=== PATIENT | male | born 1985 | race Caucasian/White ===

== ENCOUNTER 2016-07-17 16:51 | Emergency (ER) | payer MEDICAID ==
[2016-07-17 18:13] VITALS: BP 138/89
--- NOTE | 2016-07-17 19:48 | EDM.PDOC ---
[id number] 4d ABD PAIN VOMITING BLOOD Time Seen by Provider: 07/17/16 18:15 Source: Reports: Patient, Family History Limitations: Reports: No limitations - History of Present Illness INITIAL COMMENTS - FREE TEXT/NARRATIVE: 31-year-old male with chronic abdominal pain which is worsening over the past 2- 3 days. He has had a workup in the past and was expected to schedule an EGD and colonoscopy but he has not done that yet. Some increased pain with eating, no fevers or chills but he does get nauseated enough to have emesis at times and he thinks it's occasionally coffee ground emesis. He denies dark stools. No fevers or chills. Location: other (Pain is mostly across the lower abdomen and left upper quadrant ) Quality: Reports: ache, cramping Severity: moderate Worsens with: Reports: other (Seems to be worse after eating) Associated Symptoms: Reports: nausea/vomiting. Denies: diarrhea, fever/chills, loss of appetite - Related Data Allergies/ADRs: Allergies Allergy/AdvReac Type Severity Reaction Status Date / Time No Known Allergies Allergy Verified 07/17/16 18:13 Past Medical History Gastrointestinal History: Reports: Other (see below) Other Gastrointestinal History: bloody stools Musculoskeletal History: Reports: Fracture Psychiatric History: Reports: ADD, Bipolar - Past Surgical History Musculoskeletal Surgical History: Reports: ORIF Social & Family History - Tobacco Use Smoking Status *Q: Current Every Day Smoker Years of Tobacco use: 9 Packs/Tins Daily: 1 Used Tobacco, but Quit: No Second Hand Smoke Exposure: Yes - Caffeine Use Caffeine Use: Reports: Energy drinks, Soda - Alcohol Use Days Per Week of Alcohol Use: 4 Number of Drinks Per Day: 1 Total Drinks Per Week: 4 - Recreational Drug Use Recreational Drug Use: No Recreational Drug Type: Reports: Marijuana/Hashish Recreational Drug Use Frequency: Socially ED ROS GENERAL - Review of Systems Review Of Systems: See Below Constitutional: Denies: fever, chills, malaise HEENT: Reports: No symptoms Respiratory: Reports: No Symptoms Cardiovascular: Reports: No symptoms GI/Abdominal: Reports: Abdominal pain, Constipation, Hematemesis : Reports: no symptoms Skin: Reports: no symptoms Neurological: Reports: No Symptoms Psychiatric: Reports: No symptoms ED EXAM, GI/ABD - Physical Exam Exam: See Below Exam Limited By: No limitations General Appearance: alert, no apparent distress Eyes: bilateral: normal appearance (No jaundice) Respiratory/Chest: no respiratory distress, lungs clear Cardiovascular: regular rate, rhythm GI/Abdominal: soft, tenderness (He does react with some tenderness to the left upper quadrant and periumbilical area but no guarding or rebound) Neurological: alert, oriented Psychiatric: normal affect, normal mood Skin Exam: Warm, Dry Course - Vital Signs Last Recorded V/S: Last Vital Signs Temp 98.0 F 07/17/16 18:08 Pulse 67 07/17/16 18:08 Resp 18 07/17/16 18:08 BP 138/89 07/17/16 18:08 Pulse Ox 98 07/17/16 18:08 - Orders/Labs/Meds Labs: Laboratory Tests 07/17/16 07/17/16 07/17/16 Range/Units 18:44 18:44 18:44 WBC 11.2 H (4.5-11.0) K/uL RBC 5.65 (4.30-5.90) M/uL Hgb 17.1 H (12.0-15.0) g/dL Hct 46.9 (40.0-54.0) % MCV 83 (80-98) fL MCH 30 (27-31) pg MCHC 37 H (32-36) % Plt Count 286 (150-400) K/uL Neut % (Auto) 66 (36-66) % Lymph % (Auto) 26 (24-44) % [place] % (Auto) 5 (2-6) % Eos % (Auto) 2 (2-4) % Baso % (Auto) 1 (0-1) % ESR 2 (0-20) mm/hr Sodium 143 (140-148) mmol/L Potassium 4.1 (3.6-5.2) mmol/L Chloride 106 (100-108) mmol/L Carbon Dioxide 25 (21-32) mmol/L Anion Gap 12.4 (5.0-14.0) mmol/L BUN 10 (7-18) mg/dL Creatinine 0.9 (0.8-1.3) mg/dL Est Cr Clr Drug Dosing 148.69 mL/min Estimated GFR (MDRD) > 60 (>60) Glucose 98 (74-106) mg/dL Calcium 9.1 (8.5-10.1) mg/dL Total Bilirubin 0.5 (0.2-1.0) mg/dL AST 17 (15-37) U/L ALT 39 (12-78) U/L Alkaline Phosphatase 91 (46-116) U/L Total Protein 8.0 (6.4-8.2) g/dL Albumin 4.4 (3.4-5.0) g/dL Globulin 3.6 H (2.3-3.5) g/dL Albumin/Globulin Ratio 1.2 (1.2-2.2) Amylase 25 (25-115) U/L Lipase 80 (73-393) U/L - Re-Assessments/Exams Free Text/Narrative Re-Assessment/Exam: 07/17/16 20:42 CBC and CMP were obtained and were reassuring, normal. Sedimentation rate was 2. While awaiting the labs the patient ate a full meal from [employer] and complained of a small amount of increased epigastric and left upper quadrant discomfort. He'll be placed on 40 mg of Prilosec daily and given 30 day supply with prescription, and encouraged to set up his EGD and colonoscopy as soon as possible. Departure - Departure Time of Disposition: 19:54 Disposition: Home, Self-Care 01 Condition: good Clinical Impression: Abdominal pain Qualifiers: Abdominal location: lower abdomen, unspecified Qualified Code(s): R10.30 - Lower abdominal pain, unspecified Instructions: Abdominal Pain, Adult, [id number] Referrals: PCP,None [Primary Care Provider] - Forms: ED Department Discharge Care Plan Goals: Take omeprazole once daily as prescribed, and set up you're to followup studies as soon as possible. Return if worsening or concerns
== END 2016-07-17 19:54 | disposition home or self-care (01) ==
LOC: JP.ED 16:51
DX: R10.30 Lower abdominal pain, unspecified (principal); F17.210 Nicotine dependence, cigarettes, uncomplicated; Z98.890 Other specified postprocedural states
CPT/HCPCS: 36415; 80053; 82150; 83690; 85025; 85651; 99283; 99284

== ENCOUNTER 2016-07-22 08:13 | Day surgery (SDC) | payer MEDICAID ==
[2016-07-22] MEDS ORDERED: Dextrose 5%-Lactated Ringers 1,000 ML IV SCH (08:45)
[2016-07-22] MEDS ORDERED: Glycopyrrolate 0.2 MG/ML 2 ML SYRINGE IVPUSH ONE ×2 (09:15→11:45)
[2016-07-22] MEDS ORDERED: Propofol 200 MG/20 ML SDV ONE (10:36)
[2016-07-22] MEDS ORDERED: Midazolam 1 MG/ML 2 ML SDV ONE (10:36)
[2016-07-22] MEDS ORDERED: fentaNYL 100 MCG/2 ML SDV ONE (10:36)
[2016-07-22] MEDS ORDERED: Pantoprazole 40 MG Vial IVPUSH ONE (12:30)
[2016-07-22 13:39] VITALS: BP 120/73
--- NOTE | 2016-07-23 12:42 | OR ---
DATE OF PROCEDURE: 07/22/2016 PREOPERATIVE DIAGNOSIS: Recent history of hematemesis. POSTOPERATIVE DIAGNOSIS: Recent history of hematemesis with erosive antral gastritis. OPERATIVE PROCEDURES: Esophagogastroduodenoscopy with; 1. Biopsies of antrum for CLOtest. 2. Random biopsies of duodenum to rule out problems such as celiac disease. ANESTHESIA: IV sedation. INDICATIONS FOR PROCEDURE: A 31-year-old male presenting with a 2-month history of some intermittent hematemesis. He has not been on any antisecretory medication due to insurance issues. Plan is to proceed with an upper GI endoscopy with biopsies as indicated. Potential risks including bleeding and perforation were discussed, and the patient wishes to proceed. DETAILS OF PROCEDURE: The patient was taken to the operating room and placed in the left lateral decubitus position. IV sedation was administered, after which the upper GI endoscope was passed orally through the length of the esophagus and into the stomach with retroflexion view of the fundus, and thereafter through the pyloric channel and into the proximal duodenum. The findings included normal hypopharynx, larynx, upper esophageal sphincter, and esophageal body. At the EG junction, no hiatal hernia was noted and there was no significant inflammation. The proximal stomach was unremarkable. In the antrum, there was some erosive gastritis. These were presently covered with some fibrinous-type exudate and would likely account for the patient's bleeding history. Pyloric channel and duodenum junction of 3rd and 4th portions, were unremarkable. At this point, biopsies were obtained from the antrum and sent for CLOtest for H. pylori. The patient has a significant amount of ill-defined abdominal complaints and as we were in the process of upper endoscopy, the decision was made to proceed with some random duodenal biopsies to rule out problems such as celiac disease. These were obtained and sent for histologic evaluation. Minimal bleeding from the biopsy sites was seen, and the procedure then concluded. The patient will be given Protonix 40 mg IV in the recovery room and then started on Protonix 40 mg daily. The patient will be following up with DI Fall, at [facility], in about 2 weeks. Rajesh Frias MD /[id number]
== END 2016-07-22 13:49 | disposition home or self-care (01) ==
LOC: JP.SDS 08:13
PROVIDERS: ATTEND Surgery
DX: K29.50 Unspecified chronic gastritis without bleeding (principal); F17.200 Nicotine dependence, unspecified, uncomplicated
CPT/HCPCS: 43239; 87081; C9113; J2250; J2704; J3010; J7042; 88305

== ENCOUNTER 2016-10-30 13:51 | Emergency (ER) | payer MEDICAID ==
[2016-10-30 14:11] VITALS: BP 138/81
--- NOTE | 2016-10-30 14:34 | EDM.PDOC ---
[id number] Complaint: RIGHT FOOT INJURY LOG FEEL ON IT Time Seen by Provider: 10/30/16 14:15 Source of Information: Reports: Patient History Limitations: Reports: No Limitations - History of Present Illness INITIAL COMMENTS - FREE TEXT/NARRATIVE: 31-year-old male sustaining trauma to his right foot. A log fell over onto his the top of his right foot. This happened approximately 3 hours ago, he has significant swelling on the top of his foot, bruising, and pain with weightbearing. No other injury. Onset: Today Location: Reports: Lower Extremity, Right Severity: Mild Associated Symptoms: Reports: No Other Symptoms right foot Pain Score (Numeric/FACES): 5 - Related Data Allergies Allergy/AdvReac Type Severity Reaction Status Date / Time No Known Allergies Allergy Verified 10/30/16 14:14 Home Meds: Home Meds Dextroamphetamine/Amphetamine [Adderall 20 mg Tablet] 10 mg PO BID 07/21/16 [ History] lamoTRIgine [Lamictal] 25 mg PO BID 07/21/16 [History] Hydrocodone/Acetaminophen [Vicodin 5-300 mg Tablet] 1 tab PO TID 10/30/16 [ History] Omeprazole Magnesium [Prilosec Otc] 20 mg PO DAILY 10/30/16 [History] Sertraline [Zoloft] 100 mg PO DAILY 10/30/16 [History] Past Medical History Gastrointestinal History: Reports: GERD Other Gastrointestinal History: bloody stools Musculoskeletal History: Reports: Fracture Psychiatric History: Reports: ADD, Bipolar - Past Surgical History Musculoskeletal Surgical History: Reports: ORIF Social & Family History - Tobacco Use Smoking Status *Q: Current Every Day Smoker Years of Tobacco use: 10 Packs/Tins Daily: 1 Used Tobacco, but Quit: No Second Hand Smoke Exposure: No - Caffeine Use Caffeine Use: Reports: Coffee, Soda - Alcohol Use Days Per Week of Alcohol Use: 4 Number of Drinks Per Day: 1 Total Drinks Per Week: 4 - Recreational Drug Use Recreational Drug Use: No Recreational Drug Type: Reports: Marijuana/Hashish Recreational Drug Use Frequency: Socially Review of Systems - Review of Systems Review Of Systems: See Below Constitutional: Denies: Fever Respiratory: Denies: Shortness of Breath GI/Abdominal: Denies: Nausea, Vomiting Skin: Reports: Bruising Psychiatric: Reports: Anxiety ED EXAM, GENERAL - Physical Exam Exam: See Below Exam Limited By: No Limitations General Appearance: Alert, No Apparent Distress Respiratory/Chest: No Respiratory Distress, Lungs Clear Cardiovascular: Regular Rate, Rhythm Extremities: Other (Exam is otherwise limited to his right foot. The patient has a fairly tense hematoma formed on the top of his foot, no laceration or bleeding. There is bruising and discoloration.) Course - Vital Signs Last Recorded V/S: Last Vital Signs Temp 98.5 F 10/30/16 14:09 Pulse 95 10/30/16 14:09 Resp 16 10/30/16 14:09 BP 138/81 10/30/16 14:09 Pulse Ox 97 10/30/16 14:09 - Orders/Labs/Meds Orders: Active Orders 24 hr Category Date Time Status Foot Comp Min 3V Rt [CR] Stat Exams 10/30/16 14:24 Taken - Re-Assessments/Exams Free Text/Narrative Re-Assessment/Exam: 10/30/16 14:34 An x-ray of the right foot was obtained. 10/30/16 14:43 X-ray is negative. A three-inch [place] wrap was applied to the foot and the patient can increase activity as tolerated. Ice may help short-term. Departure - Departure Time of Disposition: 15:03 Disposition: Home, Self-Care 01 Condition: Good Clinical Impression: Foot contusion Qualifiers: Encounter type: initial encounter Laterality: right Qualified Code(s): S90.31XA - Contusion of right foot, initial encounter - Discharge Information Instructions: Foot Contusion, [id number] Referrals: PCP,None [Primary Care Provider] - Forms: ED Department Discharge Care Plan Goals: Wrap for support, ice can help, and increase activity as tolerated. Recheck in 3 -4 days if not improving satisfactorily. - My Orders Last 24 Hours: My Active Orders 10/30/16 14:24 Foot Comp Min 3V Rt [CR] Stat - Assessment/Plan Last 24 Hours: My Active Orders 10/30/16 14:24 Foot Comp Min 3V Rt [CR] Stat
--- NOTE | 2016-11-01 12:09 | CR ---
Soft tissue swelling of the forefoot. No fracture.
== END 2016-10-30 15:04 | disposition home or self-care (01) ==
LOC: JP.ED 13:51
DX: S90.31XA Contusion of right foot, initial encounter (principal); K21.9 Gastro-esophageal reflux disease without esophagitis; F31.9 Bipolar disorder, unspecified; F17.210 Nicotine dependence, cigarettes, uncomplicated; Z79.899 Other long term (current) drug therapy; W22.8XXA Striking against or struck by other objects, initial encounter
CPT/HCPCS: 73630-26-RT; 73630-RT; 99284

== ENCOUNTER 2016-11-09 19:21 | Emergency (ER) | payer MEDICAID | END 2016-11-09 21:45 | disposition left against medical advice (07) | LOC: JP.ED 19:21 | DX: Z53.21 Procedure and treatment not carried out due to patient leaving prior to being seen by health care provider (principal) ==

== ENCOUNTER 2016-11-14 14:22 | Emergency (ER) | payer MEDICAID ==
[2016-11-14 14:34] VITALS: BP 164/81
[2016-11-14] MEDS ORDERED: Acetaminophen/HYDROcodone 325-5 MG Tab PO ONE (15:18)
--- NOTE | 2016-11-14 15:24 | EDM.PDOC ---
ED HPI GENERAL MEDICAL PROBLEM - General Chief Complaint: ENT Problem Stated Complaint: TOOTH PAIN Time Seen by Provider: 11/14/16 14:50 Source of Information: Reports: Patient, Family History Limitations: Reports: No Limitations - History of Present Illness INITIAL COMMENTS - FREE TEXT/NARRATIVE: Orville presents today with complaints of continued and worsening dental pain. Location: Reports: Other (jaw with radiation to right ear. ) Quality: Reports: Ache, Stabbing, Throbbing Severity: Moderate Improves with: Reports: Other (Naproxen and hydrocodone) - Related Data Allergies Allergy/AdvReac Type Severity Reaction Status Date / Time No Known Allergies Allergy Verified 10/30/16 14:14 Home Meds: Home Meds Dextroamphetamine/Amphetamine [Adderall 20 mg Tablet] 30 mg PO BID 07/21/16 [ History] lamoTRIgine [Lamictal] 25 mg PO BID 07/21/16 [History] Omeprazole Magnesium [Prilosec Otc] 20 mg PO DAILY 10/30/16 [History] Sertraline [Zoloft] 100 mg PO DAILY 10/30/16 [History] Past Medical History Gastrointestinal History: Reports: GERD Other Gastrointestinal History: bloody stools Musculoskeletal History: Reports: Fracture Psychiatric History: Reports: ADD, Bipolar - Past Surgical History Musculoskeletal Surgical History: Reports: ORIF Social & Family History - Tobacco Use Smoking Status *Q: Current Every Day Smoker Years of Tobacco use: 10 Packs/Tins Daily: 2 Used Tobacco, but Quit: No Second Hand Smoke Exposure: No - Caffeine Use Caffeine Use: Reports: Coffee, Soda - Alcohol Use Days Per Week of Alcohol Use: 4 Number of Drinks Per Day: 1 Total Drinks Per Week: 4 - Recreational Drug Use Recreational Drug Use: No Recreational Drug Type: Reports: Marijuana/Hashish Recreational Drug Use Frequency: Socially ED ROS ENT - Review of Systems Review Of Systems: See Below Constitutional: Denies: Fever, Chills, Malaise, Weakness HEENT: Reports: Dental Pain, Ear Pain, Other (Pain to right upper and left bottom teeth with radiation to right ear. ). Denies: Ear Discharge, Eye Discharge, Eye Pain, Hearing Loss, Nose Pain, Rhinitis, Sinus Problem, Throat Pain, Throat Swelling Respiratory: Denies: Shortness of Breath, Wheezing, Cough, Sputum Cardiovascular: Denies: Chest Pain, Blood Pressure Problem, Dyspnea on Exertion , Edema, Lightheadedness, Palpitations, PND, Syncope Endocrine: Reports: No Symptoms Musculoskeletal: Denies: Neck Pain, Muscle Pain, Muscle Stiffness Skin: Denies: No Symptoms, Bruising, Rash, Erythema, Wound Neurological: Reports: Headache. Denies: Confusion, Dizziness, Numbness, Tingling, Weakness Psychiatric: Reports: No Symptoms Hematologic/Lymphatic: Reports: No Symptoms Immunologic: Reports: No Symptoms ED EXAM, ENT - Physical Exam Exam: See Below Text/Narrative:: Orville is an alert, oriented and pleasant 31 year old male who has an oral surgeon consult pending This TuesdayNovember 16 for impacted wisdom teeth for extraction. [employer]INEER was reviewed, opiate fills appropriate. Exam Limited By: No Limitations General Appearance: Alert, WD/WN, Mild Distress Eye Exam: Bilateral Eye: EOMI, PERRL Ears: Normal External Exam, Normal Canal, Hearing Grossly Normal, Normal TMs. No: Auricular Tenderness, Mastoid Swelling, Mastoid Tenderness Nose: Normal Inspection, Normal Mucousa, No Blood Mouth/Throat: Normal Inspection, Normal Gums, Normal Lips, Other (Pain to right upper wisdom, left lower wisdom teeth areas. ) Neck: Normal Inspection, Supple, Non-Tender, Full Range of Motion. No: Lymphadenopathy (R), Lymphadenopathy (L) Respiratory/Chest: No Respiratory Distress, Lungs Clear, Normal Breath Sounds, No Accessory Muscle Use, Chest Non-Tender Cardiovascular: Normal Peripheral Pulses, Regular Rate, Rhythm, No Edema, No Murmur, No Rub Back: Normal Inspection, Full Range of Motion. No: CVA Tenderness (R), CVA Tenderness (L) Extremities: Normal Inspection, Normal Range of Motion, Non-Tender, No Pedal Edema, Normal Capillary Refill, Increased Warmth Neurological: Alert, Oriented, CN II-XII Intact, Normal Cognition, Normal Gait, No Motor/Sensory Deficits Psychiatric: Normal Affect, Normal Mood Skin: Warm, Dry, Intact, Normal Color, No Rash Lymphatic: No Adenopathy Course - Vital Signs Last Recorded V/S: Last Vital Signs Temp 36.4 C 11/14/16 14:41 Pulse 67 11/14/16 14:41 Resp 16 11/14/16 14:41 BP 164/81 H 11/14/16 14:41 Pulse Ox 97 11/14/16 14:41 - Orders/Labs/Meds Meds: Medications Discontinued Medications Generic Name Dose Route Start Last Admin Trade Name Michael PRN Reason Stop Dose Admin Hydrocodone Bitart/Acetaminophen 1 tab 11/14/16 15:18 11/14/16 15:27 Burt 325-5 Mg PO 11/14/16 15:19 1 tab ONETIME ONE Administration - Re-Assessments/Exams Free Text/Narrative Re-Assessment/Exam: 11/14/16 15:27 Orville will be provided hydrocodone 5/325mg one tablet in ER. He will be given instymed for additional hydrocodone until date of surgical consult. [place] [employer]ER reviewed. Departure - Departure Time of Disposition: 15:30 Disposition: Home, Self-Care 01 Condition: Good Clinical Impression: Dental impaction - Discharge Information Referrals: PCP,None [Primary Care Provider] - Forms: ED Department Discharge Additional Instructions: You continue to have pain due to dental impaction. Surgical consult pending. For pain it is best to take naproxen 500mg by mouth twice per day with food. Use hydrocodone 5/325 mg, one tablet by mouth every 6 hours as directed for uncontrolled pain. You may use additional tylenol (acetaminophen) as needed for pain. Keep surgical consult. - Assessment/Plan Assessment:: Dental impaction Pending oral surgeon consult for extraction Plan: Patient will continue to have pain due to dental impaction. Surgical consult pending. For pain he can take naproxen 500mg by mouth twice per day with food. Use hydrocodone 5/325 mg, one tablet by mouth every 6 hours as directed for uncontrolled pain #12 tabs provided. He may use additional tylenol (acetaminophen) as needed for pain. Keep surgical consult.
== END 2016-11-14 16:29 | disposition home or self-care (01) ==
LOC: JP.ED 14:22
DX: K01.1 Impacted teeth (principal); F17.210 Nicotine dependence, cigarettes, uncomplicated; K21.9 Gastro-esophageal reflux disease without esophagitis; F98.8 Other specified behavioral and emotional disorders with onset usually occurring in childhood and adolescence; Z79.899 Other long term (current) drug therapy
CPT/HCPCS: 99283; A9270

== ENCOUNTER 2016-12-16 18:49 | Emergency (ER) | payer MEDICAID ==
[2016-12-16 19:00] VITALS: BP 140/71
[2016-12-16] MEDS ORDERED: Acetaminophen/oxyCODONE 325-5 MG Tab PO ONE (20:50)
[2016-12-16] MEDS ORDERED: Ibuprofen 600 MG Tab PO ONE (20:51)
--- NOTE | 2016-12-16 21:21 | EDM.PDOC ---
ED HPI GENERAL MEDICAL PROBLEM - General Chief Complaint: Back Pain or Injury Stated Complaint: SLIPPED IN SHOWER HURT BACK Time Seen by Provider: 12/16/16 19:45 Source of Information: Reports: Patient, Family History Limitations: Reports: No Limitations - History of Present Illness INITIAL COMMENTS - FREE TEXT/NARRATIVE: Slipped in shower, ? if twisting/direct strike but c/o immediate back pain. Unable to get up at time, but denies specific weakness. No LOC, no c/o neck pain. No c/o radicular pain. Has history of 'ruptured disks' but not sure what level. No history of back surgery. No incontinence or saddle parethesia/anesthesia. Duration: Minutes: Location: Reports: Back Severity: Severe Improves with: Reports: None Worsens with: Reports: None Associated Symptoms: Reports: No Other Symptoms Treatments RELATIONSHIP MANAGER: Denies: Acetaminophen, Aspirin Middle Back Pain Score (Numeric/FACES): 7 - Related Data Allergies Allergy/AdvReac Type Severity Reaction Status Date / Time No Known Allergies Allergy Verified 10/30/16 14:14 Home Meds: Home Meds Dextroamphetamine/Amphetamine [Adderall 20 mg Tablet] 30 mg PO BID 07/21/16 [ History] lamoTRIgine [Lamictal] 25 mg PO BID 07/21/16 [History] Omeprazole Magnesium [Prilosec Otc] 20 mg PO DAILY 10/30/16 [History] Sertraline [Zoloft] 100 mg PO DAILY 10/30/16 [History] Past Medical History Gastrointestinal History: Reports: GERD Other Gastrointestinal History: bloody stools Musculoskeletal History: Reports: Fracture Psychiatric History: Reports: ADD, Bipolar - Past Surgical History Musculoskeletal Surgical History: Reports: ORIF Social & Family History - Tobacco Use Smoking Status *Q: Current Every Day Smoker Years of Tobacco use: 10 Packs/Tins Daily: 2 Used Tobacco, but Quit: No Tobacco Use Comment: current smoker Second Hand Smoke Exposure: No - Caffeine Use Caffeine Use: Reports: None - Alcohol Use Days Per Week of Alcohol Use: 4 Number of Drinks Per Day: 1 Total Drinks Per Week: 4 - Recreational Drug Use Recreational Drug Use: No Recreational Drug Type: Reports: Marijuana/Hashish Recreational Drug Use Frequency: Socially ED ROS GENERAL - Review of Systems Review Of Systems: See Below Constitutional: Reports: No Symptoms HEENT: Reports: No Symptoms. Denies: Dental Pain Respiratory: Reports: No Symptoms Cardiovascular: Reports: No Symptoms Endocrine: Reports: No Symptoms GI/Abdominal: Reports: No Symptoms Musculoskeletal: Reports: No Symptoms Skin: Reports: No Symptoms Neurological: Reports: Difficulty Walking. Denies: Dizziness, Headache, Numbness, Paresthesia, Pre-Existing Deficit, Seizure, Syncope, Tingling, Tremors , Trouble Speaking, Weakness Psychiatric: Reports: No Symptoms Hematologic/Lymphatic: Reports: No Symptoms ED EXAM,LOWER BACK PAIN/INJURY - Physical Exam Exam: See Below Exam Limited By: No Limitations General Appearance: Alert, Anxious, Moderate Distress Ears: Normal External Exam, Hearing Grossly Normal Nose: Normal Inspection Throat/Mouth: Normal Inspection, Normal Lips, Normal Teeth, No Airway Compromise Head: Atraumatic, Normocephalic Neck: Normal Inspection, Supple, Non-Tender, Full Range of Motion. No: Tender Midline Respiratory/Chest: No Respiratory Distress, Lungs Clear, Chest Non-Tender Cardiovascular: Normal Peripheral Pulses, Regular Rate, Rhythm, No Edema, No Gallop GI/Abdominal: Normal Bowel Sounds, Soft, Non-Tender, Pelvis Stable (Male) Exam: Normal Inspection Back Exam: Normal Inspection, Decreased Range of Motion, Muscle Spasm (marked R T9-11 spasm, relieved w/ direct pressure), Paraspinal Tenderness, Vertebral Tenderness (TTP over L5 and T12). No: Full Range of Motion Extremities: Normal Inspection, Normal Range of Motion, Non-Tender Neurological: Alert, Normal Mood/Affect, Normal Dorsiflexion, CN II-XII Intact, Normal Plantar Flexion, No Motor/Sensory Deficits, Oriented x 3. No: Abnormal Motor Psychiatric: Normal Affect, Normal Mood, Anxious Skin Exam: Warm, Dry, Intact, Normal Color, No Rash Lymphatic: No Adenopathy Comments: Repeat exam after pain meds showed improved ROM, able to ambulate w/ minimal difficult. Continued spasm of R paraspinous mm. Course - Vital Signs Last Recorded V/S: Last Vital Signs Temp 36.1 C 12/16/16 18:56 Pulse 56 L 12/16/16 18:56 Resp 16 12/16/16 18:56 BP 140/71 12/16/16 18:56 Pulse Ox 97 12/16/16 18:56 - Orders/Labs/Meds Orders: Active Orders 24 hr Category Date Time Status Lumbar Spine 2 or 3V [CR] Stat Exams 12/16/16 20:53 Ordered Meds: Medications Discontinued Medications Generic Name Dose Route Start Last Admin Trade Name Michael PRN Reason Stop Dose Admin Ibuprofen 600 mg 12/16/16 20:51 12/16/16 20:59 Motrin PO 12/16/16 20:52 600 mg ONETIME ONE Administration Oxycodone/Acetaminophen 2 tab 12/16/16 20:50 12/16/16 20:58 Percocet 325-5 Mg PO 12/16/16 20:51 2 tab ONETIME ONE Administration Departure - Departure Time of Disposition: 21:45 Disposition: Home, Self-Care 01 Condition: Good Clinical Impression: Acute back pain less than 4 weeks duration Lumbar back sprain Qualifiers: Encounter type: initial encounter Qualified Code(s): S33.5XXA - Sprain of ligaments of lumbar spine, initial encounter - Discharge Information Instructions: Muscle Strain, [id number], Back Injury Prevention, [id number] , Pain Medicine Instructions, [id number], Back Pain, Adult, [id number] Referrals: PCP,None [Primary Care Provider] - (Physical therapy) Forms: ED Department Discharge Additional Instructions: No driving or operating machinery/power tools when taking pain medications or in sever pain. Follow up with primary care provider. Call for appointment. Keep active, avoid bed rest, avoid stooping, avoid bending over to lift. Follow up with physical therapy. Oxycodone 5-10mg q4h prn #30. Acetaminophen 1000 mg QID Ibuprofen 600mg (OTC 3 tablets) TID with food. Methocarbamol 2 tablets four times a day with food (#40) Return if weakness, loss of sensation, or pain that cannot be controlled. Pressure/massage as needed. 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 Impression acute myofascial back strain w/o e/o fracture or spondylolysis. Neurologically intact. Anticpate self resolution but likely over significant ( e.g 6+ weeks) time. Given his significant spasm, trigger point injection therapy may be of significant relief. I offered this to him, but he declined at this time. Plan: Oral analgesia, activity, trial of "muscle relaxers" with referral to PT.
--- NOTE | 2016-12-17 09:11 | CR ---
Vertebral body heights are maintained. No fracture.
== END 2016-12-16 22:10 | disposition home or self-care (01) ==
LOC: JP.ED 18:49
DX: S33.5XXA Sprain of ligaments of lumbar spine, initial encounter (principal); F17.210 Nicotine dependence, cigarettes, uncomplicated; K21.9 Gastro-esophageal reflux disease without esophagitis; F31.9 Bipolar disorder, unspecified; W18.2XXA Fall in (into) shower or empty bathtub, initial encounter; Z79.899 Other long term (current) drug therapy
CPT/HCPCS: 72100; 99284; A9270

== ENCOUNTER 2017-02-07 23:59 | Emergency (ER) | payer MEDICAID ==
--- NOTE | 2017-02-08 00:32 | EDM.PDOC ---
ED HPI GENERAL MEDICAL PROBLEM - General Chief Complaint: ENT Problem Stated Complaint: TOOTHACHE Time Seen by Provider: 02/08/17 00:20 Source of Information: Reports: Patient, Old Records, RN Notes Reviewed History Limitations: Reports: No Limitations - History of Present Illness INITIAL COMMENTS - FREE TEXT/NARRATIVE: Chief complaint Tooth pain History of present illness 31-year-old male who has limited income, has had a total pain left upper tooth for some time, worse at night and worse with cold fluids. He also has wisdom teeth that need to be extracted No fever or chills No nausea or vomiting Oral/Mouth Pain Score (Numeric/FACES): 7 - Related Data Allergies Allergy/AdvReac Type Severity Reaction Status Date / Time No Known Allergies Allergy Verified 10/30/16 14:14 Home Meds: Home Meds Dextroamphetamine/Amphetamine [Adderall 20 mg Tablet] 30 mg PO BID 07/21/16 [ History] lamoTRIgine [Lamictal] 25 mg PO BID 07/21/16 [History] Omeprazole Magnesium [Prilosec Otc] 20 mg PO DAILY 10/30/16 [History] Sertraline [Zoloft] 100 mg PO DAILY 10/30/16 [History] Hydrocodone/Acetaminophen [Hydrocodon-Acetaminophen 5-325] 1 - 2 each PO Q4H PRN #12 tablet 02/08/17 [Rx] Past Medical History - Past Health History Medical/Surgical History: Denies Medical/Surgical History Gastrointestinal History: Reports: GERD Other Gastrointestinal History: bloody stools Musculoskeletal History: Reports: Fracture Psychiatric History: Reports: ADD, Bipolar - Past Surgical History Musculoskeletal Surgical History: Reports: ORIF Social & Family History - Tobacco Use Smoking Status *Q: Current Every Day Smoker Years of Tobacco use: 9 Packs/Tins Daily: 1 Used Tobacco, but Quit: No Second Hand Smoke Exposure: No - Caffeine Use Caffeine Use: Reports: Soda - Alcohol Use Days Per Week of Alcohol Use: 4 Number of Drinks Per Day: 1 Total Drinks Per Week: 4 - Recreational Drug Use Recreational Drug Use: No Recreational Drug Type: Reports: Marijuana/Hashish Recreational Drug Use Frequency: Socially ED ROS ENT - Review of Systems Review Of Systems: ROS reveals no pertinent complaints other than HPI. Constitutional: Reports: No Symptoms HEENT: Reports: Dental Pain Respiratory: Reports: No Symptoms ED EXAM, ENT - Physical Exam Exam: See Below Exam Limited By: No Limitations General Appearance: Alert, Mild Distress, Other (Appears well) Eye Exam: Bilateral Eye: EOMI Ears: Normal External Exam Nose: Normal Inspection Mouth/Throat: Normal Gums, Normal Lips, Normal Oropharynx, Dental Pain, Dental Tenderness. No: Dental Abcess, Dental Trauma, Gum Swelling, Hoarse Voice, Perioral Cyanosis Head: Atraumatic Neck: Normal Inspection Respiratory/Chest: No Respiratory Distress, No Accessory Muscle Use Neurological: Alert, Oriented Psychiatric: Normal Mood Course - Vital Signs Last Recorded V/S: Last Vital Signs Temp 36.3 C 02/08/17 00:12 Pulse 70 02/08/17 00:12 Resp 18 02/08/17 00:12 BP 155/91 H 02/08/17 00:12 Pulse Ox 97 02/08/17 00:12 - Re-Assessments/Exams Free Text/Narrative Re-Assessment/Exam: 02/08/17 00:34 31-year-old male with ongoing dental pain in part due to a broken tooth with a sensitive nerve and in part due to wisdom teeth Dental referral as soon as possible Hydrocodone/acetaminophen 12 tablets Departure - Departure Time of Disposition: 00:31 Disposition: 20 Condition: Good Clinical Impression: Pain, dental - Discharge Information Prescriptions: Hydrocodone/Acetaminophen [Hydrocodon-Acetaminophen 5-325] 1 - 2 each PO Q4H PRN #12 tablet PRN Reason: Moderate to severe pain Referrals: Josue Johnson PA-C [Primary Care Provider] - Forms: ED Department Discharge Additional Instructions: Make a dental appointment as soon as you can
[2017-02-08 02:09] VITALS: BP 155/91
== END 2017-02-08 00:44 | disposition home or self-care (01) ==
LOC: JP.ED 23:59
DX: K03.81 Cracked tooth (principal); K21.9 Gastro-esophageal reflux disease without esophagitis; F31.9 Bipolar disorder, unspecified; F17.210 Nicotine dependence, cigarettes, uncomplicated; S51.811A Laceration without foreign body of right forearm, initial encounter; Z79.899 Other long term (current) drug therapy; W25.XXXA Contact with sharp glass, initial encounter
CPT/HCPCS: 12002; 73090; 99283; A4217

== ENCOUNTER 2017-02-08 12:50 | Emergency (ER) | payer MEDICAID ==
[2017-02-08 13:02] VITALS: BP 137/71
--- NOTE | 2017-02-08 13:19 | EDM.PDOC ---
ED HPI GENERAL MEDICAL PROBLEM - General Chief Complaint: Laceration Stated Complaint: RT ARM CUT WITH GLASS Time Seen by Provider: 02/08/17 13:05 Source of Information: Reports: Patient History Limitations: Reports: No Limitations - History of Present Illness INITIAL COMMENTS - FREE TEXT/NARRATIVE: 31-year-old male put his arm through a passenger side vehicle window. He has several small lacerations on the flexor surface of the forearm. Some pain with movement of the fingers. Onset: Sudden Duration: Hour(s): Location: Reports: Upper Extremity, Right Severity: Mild - Related Data Allergies Allergy/AdvReac Type Severity Reaction Status Date / Time No Known Allergies Allergy Verified 10/30/16 14:14 Home Meds: Home Meds lamoTRIgine [Lamictal] 25 mg PO BID 07/21/16 [History] Sertraline [Zoloft] 100 mg PO DAILY 10/30/16 [History] Dextroamphetamine/Amphetamine [Adderall Xr 20 mg Capsule] 1 tab PO DAILY [History] Hydrocodone/Acetaminophen [Hydrocodon-Acetaminophen 5-325] 1 - 2 each PO Q4H PRN #12 tablet 02/08/17 [Rx] Past Medical History - Past Health History Medical/Surgical History: Denies Medical/Surgical History Gastrointestinal History: Reports: GERD Other Gastrointestinal History: bloody stools Musculoskeletal History: Reports: Fracture Psychiatric History: Reports: ADD, Bipolar - Past Surgical History Musculoskeletal Surgical History: Reports: ORIF Social & Family History - Tobacco Use Smoking Status *Q: Current Every Day Smoker Years of Tobacco use: 9 Packs/Tins Daily: 1 Used Tobacco, but Quit: No Second Hand Smoke Exposure: No - Caffeine Use Caffeine Use: Reports: Soda - Alcohol Use Days Per Week of Alcohol Use: 4 Number of Drinks Per Day: 1 Total Drinks Per Week: 4 Date of Last Drink: 02/07/17 Time of Last Drink: 22:00 - Recreational Drug Use Recreational Drug Use: No Recreational Drug Type: Reports: Marijuana/Hashish Recreational Drug Use Frequency: Socially ED ROS GENERAL - Review of Systems Review Of Systems: See Below Constitutional: Denies: Fever, Chills HEENT: Reports: Other (Currently being treated for a toothache) Respiratory: Denies: Shortness of Breath GI/Abdominal: Denies: Nausea, Vomiting Neurological: Denies: Paresthesia (No numbness of the distal right extremity) Psychiatric: Reports: No Symptoms ED EXAM, SKIN/RASH Exam: See Below Exam Limited By: No Limitations General Appearance: Alert, No Apparent Distress Respiratory/Chest: No Respiratory Distress Cardiovascular: Regular Rate, Rhythm Extremities: Other (Remainder of exam is limited to the right arm. The patient has an area of superficial abrasions and several small lacerations to the flexor surface of the forearm. There is a small amount of swelling. He has full range of motion of the fingers and thumb, although there is some pain with movement there is no weakness or paresthesias. He has normal distal circulation. ) Course - Vital Signs Last Recorded V/S: Last Vital Signs Temp 93.9 F L 02/08/17 13:09 Pulse 59 L 02/08/17 13:09 Resp 18 02/08/17 13:09 BP 137/71 02/08/17 13:09 Pulse Ox 98 02/08/17 13:09 - Orders/Labs/Meds Meds: Medications Discontinued Medications Generic Name Dose Route Start Last Admin Trade Name Michael PRN Reason Stop Dose Admin Bacitracin 1 dose 02/08/17 13:29 02/08/17 13:37 Bacitracin Oint 1 Gm TOP 02/08/17 13:30 1 dose ONETIME ONE Administration Lidocaine/Epinephrine 30 ml 02/08/17 13:28 02/08/17 13:36 Xylocaine 1% With Epinephrine 1:100,000 INFILT 02/08/17 13:29 30 ml ONETIME ONE Administration - Re-Assessments/Exams Free Text/Narrative Re-Assessment/Exam: 02/08/17 13:57 An x-ray of the forearm was done that shows no fracture. There is some questionable foreign body fragments possibly glass seen on the x-ray. Because of this the area was anesthetized with 1% lidocaine with epinephrine, and all lacerations were swept thoroughly with forceps, also palpated superficially and no foreign body was felt or located. The wounds were then cleansed thoroughly with saline and 9 total 5-0 Ethilon sutures are used to close the 4 lacerations. 2 lacerations were 1 cm long, the other 2.75 cm. Topical bacitracin was applied along with a dressing and the sutures can be removed in 6 days. Departure - Departure Time of Disposition: 14:15 Disposition: Home, Self-Care 01 Condition: Good Clinical Impression: Laceration of arm, right, multiple sites Qualifiers: Encounter type: initial encounter Qualified Code(s): S41.111A - Laceration without foreign body of right upper arm, initial encounter - Discharge Information Instructions: Laceration Care, Adult, [id number] Referrals: Josue Johnson PA-C [Primary Care Provider] - Forms: ED Department Discharge Care Plan Goals: Keep wounds covered and clean while healing. Sutures can be removed in 6 days, next Tuesday. Recheck sooner if concerns of infection or not healing satisfactorily. Increase activity as tolerated, anti-inflammatories may help with pain.
[2017-02-08] MEDS ORDERED: Lidocaine 1% with EPINEPHrine 1:100,000 50 ML MDV INFILT ONE (13:28)
[2017-02-08] MEDS ORDERED: Bacitracin Oint 1 GM U/D Packet TOP ONE (13:29)
--- NOTE | 2017-02-08 13:30 | CR ---
Forearm 2V Rt INDICATION: punched auto window, cut, look for foreign bodies FINDINGS: 2, possibly 3, radiodense foreign bodies in the soft tissues of the anterior mid forearm me asuring up to 2 mm. No acute fracture.
== END 2017-02-08 14:14 | disposition home or self-care (01) ==
LOC: JP.ED 12:50
DX: S51.811A Laceration without foreign body of right forearm, initial encounter (principal); F17.210 Nicotine dependence, cigarettes, uncomplicated; Z79.899 Other long term (current) drug therapy; W25.XXXA Contact with sharp glass, initial encounter
CPT/HCPCS: 12002; 73090; 99283; A4217

== ENCOUNTER 2017-02-11 04:26 | Emergency (ER) | payer MEDICAID ==
[2017-02-11 04:44] VITALS: BP 154/98
[2017-02-11] MEDS ORDERED: Bupivacaine 0.5%/EPINEPHrine 1:200,000 50 ML MDV NERVRT ONE (04:53)
[2017-02-11] MEDS ORDERED: Bupivacaine 0.5%/EPINEPHrine 1:200,000 1.8 ML Cartridge ONE ×2 (04:57→04:58)
[2017-02-11] MEDS ORDERED: Bupivacaine 0.5%/EPINEPHrine 1:200,000 1.8 ML Cartridge INJECT ONE (04:58)
--- NOTE | 2017-02-11 05:02 | EDM.PDOC ---
ED HPI GENERAL MEDICAL PROBLEM - General Chief Complaint: ENT Problem Stated Complaint: TOOTHACHE Time Seen by Provider: 02/11/17 04:45 Source of Information: Reports: Patient History Limitations: Reports: No Limitations - History of Present Illness INITIAL COMMENTS - FREE TEXT/NARRATIVE: 31 yo male presents for the 2nd time in 3 days for toothache. Was given Vicodin and is now out. States he has an appt with his family doctor tomorrow. Has to come up with money for the dental extraction and claims he cannot afford this. No fever. Says its a different tooth that hurts now. Onset: Gradual Onset Date: 02/10/17 Duration: Hour(s): Location: Reports: Face (R side) Quality: Reports: Ache Severity: Moderate Improves with: Reports: None Worsens with: Reports: Other (? 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) (antibiotic, out of Vicodin) TOOTH Pain Score (Numeric/FACES): 8 - Related Data Allergies Allergy/AdvReac Type Severity Reaction Status Date / Time No Known Allergies Allergy Verified 10/30/16 14:14 Home Meds: Home Meds lamoTRIgine [Lamictal] 25 mg PO BID 07/21/16 [History] Sertraline [Zoloft] 100 mg PO DAILY 10/30/16 [History] Dextroamphetamine/Amphetamine [Adderall Xr 20 mg Capsule] 1 tab PO DAILY [History] Hydrocodone/Acetaminophen [Hydrocodon-Acetaminophen 5-325] 1 - 2 each PO Q4H PRN #12 tablet 02/08/17 [Rx] Acetaminophen/HYDROcodone [[place] 325-5 MG] 1 - 2 tab PO Q6H PRN #5 tab 02/11/17 [Rx] Past Medical History - Past Health History Medical/Surgical History: Denies Medical/Surgical History Gastrointestinal History: Reports: GERD Other Gastrointestinal History: bloody stools Musculoskeletal History: Reports: Fracture Psychiatric History: Reports: ADD, Bipolar - Past Surgical History Musculoskeletal Surgical History: Reports: ORIF Social & Family History - Tobacco Use Smoking Status *Q: Current Every Day Smoker Years of Tobacco use: 11 Packs/Tins Daily: 1 Used Tobacco, but Quit: No Second Hand Smoke Exposure: No - Caffeine Use Caffeine Use: Reports: Soda - Alcohol Use Days Per Week of Alcohol Use: 2 Number of Drinks Per Day: 2 Total Drinks Per Week: 4 - Recreational Drug Use Recreational Drug Use: No Recreational Drug Type: Reports: Marijuana/Hashish Recreational Drug Use Frequency: Socially ED ROS ENT - Review of Systems Review Of Systems: See Below Constitutional: Reports: No Symptoms HEENT: Reports: Dental Pain Skin: Reports: No Symptoms Neurological: Reports: No Symptoms ED EXAM, ENT - Physical Exam Exam: See Below Exam Limited By: No Limitations General Appearance: Alert, WD/WN, No Apparent Distress Ears: Normal External Exam, Normal Canal, Hearing Grossly Normal Nose: Normal Inspection, Normal Mucousa, No Blood Mouth/Throat: Normal Lips, Dental Pain, Dental Tenderness, Other (R wisdom tooth , mandibular, is decayed significantly) Head: Atraumatic, Normocephalic, Scalp Lacerations Neck: Normal Inspection, Supple, Non-Tender Respiratory/Chest: No Respiratory Distress, No Accessory Muscle Use Cardiovascular: Regular Rate, Rhythm Extremities: Normal Inspection Neurological: Alert, Oriented, CN II-XII Intact, Normal Cognition, No Motor/ Sensory Deficits Psychiatric: Normal Affect, Normal Mood Skin: Warm, Dry, Intact, Normal Color, No Rash Lymphatic: No Adenopathy Course - Vital Signs Text/Narrative:: R submandibular nerve block with 1.8 ml of 0.5% buprivacaine with epi Last Recorded V/S: Last Vital Signs Temp 36.5 C 02/11/17 04:42 Pulse 61 02/11/17 04:42 Resp 18 02/11/17 04:42 BP 154/98 H 02/11/17 04:42 Pulse Ox 98 02/11/17 04:42 - Orders/Labs/Meds Meds: Medications Discontinued Medications Generic Name Dose Route Start Last Admin Trade Name Sterlingq PRN Reason Stop Dose Admin Bupivacaine HCl/Epinephrine Bitart 3 ml 02/11/17 04:53 02/11/17 05:01 Marcaine 0.5%/Epinephrine 1:200,000 NERVRT 02/11/17 04:54 Not Given ONETIME ONE Bupivacaine HCl/Epinephrine Bitart 3.6 ml 02/11/17 04:58 02/11/17 05:00 Marcaine 0.5%/Epinephrine 1:200,000 INJECT 02/11/17 04:59 3.6 ml ONETIME ONE Administration Bupivacaine HCl/Epinephrine Bitart Confirm 02/11/17 04:57 02/11/17 05:02 Marcaine 0.5%/Epinephrine 1:200,000 Administered 02/11/17 04:58 Not Given Dose 1.8 ml .ROUTE .STK-MED ONE Bupivacaine HCl/Epinephrine Bitart Confirm 02/11/17 04:58 02/11/17 05:03 Marcaine 0.5%/Epinephrine 1:200,000 Administered 02/11/17 04:59 Not Given Dose 1.8 ml .ROUTE .STK-MED ONE Departure - Departure Time of Disposition: 05:09 Disposition: Home, Self-Care 01 Condition: Good Clinical Impression: Dental caries extending into dentin, Pain, dental - Discharge Information Prescriptions: Acetaminophen/HYDROcodone [[place] 325-5 MG] 1 - 2 tab PO Q6H PRN #5 tab PRN Reason: Pain Instructions: Dental Caries, [id number] Referrals: Josue Johnson PA-C [Primary Care Provider] - Forms: ED Department Discharge Additional Instructions: Use ibuprofen 400 mg every 4-6 hrs for pain relief. Add [place] as needed. See your dentist tomorrow as scheduled.
== END 2017-02-11 05:16 | disposition home or self-care (01) ==
LOC: JP.ED 04:26
DX: K02.9 Dental caries, unspecified (principal); F17.210 Nicotine dependence, cigarettes, uncomplicated; Z79.899 Other long term (current) drug therapy
CPT/HCPCS: 64400; 99283-25

== ENCOUNTER 2017-02-13 20:56 | Emergency (ER) | payer MEDICAID ==
[2017-02-13 21:15] VITALS: BP 142/96
--- NOTE | 2017-02-13 22:05 | EDM.PDOCBH ---
ED HPI GENERAL MEDICAL PROBLEM - General Chief Complaint: Behavioral/Psych Stated Complaint: EVAL Time Seen by Provider: 02/13/17 21:20 Source of Information: Reports: Patient, Police History Limitations: Reports: No Limitations - History of Present Illness INITIAL COMMENTS - FREE TEXT/NARRATIVE: 31-year-old male with a history of bipolar disorder was brought in by police because he was sending some texts to his father threatening self-harm. He has calm down now, is anxious to get back in to see Dr. Ritter, his regular psychotherapist who he has not seen in several months but does not longer feel feelings of self-harm. He's been struggling with some dental pain and has a appointment with her oral surgeon in the next week and half. Also some stressful situations with money and family. No specific plan. Onset: Gradual (Motions of been building over the last couple of days) Severity: Moderate teeth Pain Score (Numeric/FACES): 6 - Related Data Allergies Allergy/AdvReac Type Severity Reaction Status Date / Time No Known Allergies Allergy Verified 02/13/17 21:14 Home Meds: Home Meds lamoTRIgine [Lamictal] 25 mg PO DAILY 07/21/16 [History] Sertraline [Zoloft] 100 mg PO DAILY 10/30/16 [History] Dextroamphetamine/Amphetamine [Adderall Xr 20 mg Capsule] 1 tab PO DAILY [History] Acetaminophen/HYDROcodone [[place] 325-5 MG] 1 - 2 tab PO Q6H PRN #5 tab 02/11/17 [Rx] Past Medical History - Past Health History Medical/Surgical History: Denies Medical/Surgical History HEENT History: Reports: Other (See Below) Other HEENT History: dental carries Gastrointestinal History: Reports: GERD Other Gastrointestinal History: bloody stools Musculoskeletal History: Reports: Fracture Psychiatric History: Reports: ADD, Bipolar - Infectious Disease History Infectious Disease History: Reports: Chicken Pox - Past Surgical History Musculoskeletal Surgical History: Reports: ORIF Social & Family History - Family History Family Medical History: Unobtainable - Tobacco Use Smoking Status *Q: Current Every Day Smoker Years of Tobacco use: 10 Packs/Tins Daily: 0.5 Used Tobacco, but Quit: No Second Hand Smoke Exposure: Yes - Caffeine Use Caffeine Use: Reports: Soda, Other Other Caffeine Use: Mountain Dew - Alcohol Use Days Per Week of Alcohol Use: 2 Number of Drinks Per Day: 2 Total Drinks Per Week: 4 - Recreational Drug Use Recreational Drug Use: No Recreational Drug Type: Reports: Marijuana/Hashish Recreational Drug Use Frequency: Socially ED ROS GENERAL - Review of Systems Review Of Systems: See Below Constitutional: Denies: Fever, Chills HEENT: Reports: Dental Pain Respiratory: Denies: Shortness of Breath GI/Abdominal: Reports: No Symptoms Skin: Reports: Other (Lacerations on his right arm are healing nicely, sutures are ready to be removed) Neurological: Denies: Headache ED EXAM, BEHAVIORAL HEALTH - Physical Exam Exam: See Below Exam Limited By: No Limitations General Appearance: Alert, No Apparent Distress Respiratory/Chest: No Respiratory Distress, Lungs Clear Extremities: Other (Recent lacerations on his right arm are examined and are healing nicely. Sutures are ready to be removed) Neurological: Alert, Normal Mood/Affect, Oriented x 3 Psychiatric: Alert, Normal Affect. No: Depressed Mood, Restless, Tearful COURSE, BEHAVIORAL HEALTH COMP - Course Vital Signs: Last Vital Signs Temp 98.7 F 02/13/17 21:06 Pulse 101 H 02/13/17 21:06 Resp 16 02/13/17 21:06 BP 142/96 H 02/13/17 21:06 Pulse Ox 98 02/13/17 21:06 Re-Assessment/Re-Exam: After a long discussion with the patient he reassured me that he had no intention of self-harm and will contact Dr. Ritter tomorrow to make an appointment. I did refill some [place], #20 to get him through until his dentist visit as he has been taking 2 pills daily for pain at that time and a [employer] search confirm that he does not obtain frequent prescriptions. Departure - Departure Time of Disposition: 22:00 Disposition: Home, Self-Care 01 Condition: Good Clinical Impression: Pain, dental, Suicidal ideation - Discharge Information Instructions: Suicidal Feelings: How to Help Yourself Referrals: Josue Johnson PA-C [Primary Care Provider] - Forms: ED Department Discharge Care Plan Goals: Contact Dr. Ritter tomorrow, or his office to make an appointment in the near future. Use pain medications as directed for dental pain. [phone]. Return to ER if worsening or concerns.
== END 2017-02-13 22:15 | disposition home or self-care (01) ==
LOC: JP.ED 20:56
DX: R45.851 Suicidal ideations (principal); K08.89 Other specified disorders of teeth and supporting structures; F17.210 Nicotine dependence, cigarettes, uncomplicated
CPT/HCPCS: 99285

== ENCOUNTER 2017-11-27 17:18 | Emergency (ER) | payer SELFPAY ==
[2017-11-27] MEDS ORDERED: Aluminum Hydroxide/Magnesium Hydroxide/Simethicone Susp 30 ML Cup PO ONE (17:41)
--- NOTE | 2017-11-27 17:51 | EDM.PDOC ---
<Remington Bradshaw - Last Filed: 11/27/17 17:42> ED HPI GENERAL MEDICAL PROBLEM - General Chief Complaint: Chest Pain Stated Complaint: CHEST PAIN Time Seen by Provider: 11/27/17 17:35 Source of Information: Reports: Patient History Limitations: Reports: No Limitations - History of Present Illness INITIAL COMMENTS - FREE TEXT/NARRATIVE: 32-year-old male, smoker, who has had sharp stabbing chest pains for the last several weeks today has had for 5 episodes of more persistent substernal burning in chest pressure lasting 5-10 minutes. 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 On the way home he had a more persistent pressure so took 5 low-dose aspirin and decided to stop in the emergency room. Intermittent shortness of breath and diaphoresis with the symptoms. He tried no antacids. He is concerned because his father had a heart attack at age 36. Now in the emergency room he has just a very slight "remnant" of discomfort but he looks comfortable. EKG is nonspecific. Onset: Sudden Duration: Minutes: (5-10 minutes, this last episode lasted over 20 minutes) Location: Reports: Chest Quality: Reports: Burning, Pressure Severity: Mild Improves with: Reports: None Worsens with: Reports: None Associated Symptoms: Reports: Diaphoresis, Shortness of Breath, Other (No pleuritic pain with breathing) - Related Data Allergies Allergy/AdvReac Type Severity Reaction Status Date / Time No Known Allergies Allergy Verified 11/27/17 17:24 Past Medical History - Past Health History Medical/Surgical History: Denies Medical/Surgical History HEENT History: Reports: Other (See Below) Other HEENT History: dental carries Gastrointestinal History: Reports: GERD Other Gastrointestinal History: bloody stools Musculoskeletal History: Reports: Fracture Psychiatric History: Reports: ADD, Bipolar - Infectious Disease History Infectious Disease History: Reports: Chicken Pox - Past Surgical History Musculoskeletal Surgical History: Reports: ORIF Social & Family History - Family History Family Medical History: Unobtainable - Tobacco Use Smoking Status *Q: Current Every Day Smoker Years of Tobacco use: 11 Packs/Tins Daily: 1.5 - Caffeine Use Caffeine Use: Reports: Soda, Other Other Caffeine Use: Mountain Dew ED ROS GENERAL - Review of Systems Review Of Systems: See Below Constitutional: Denies: Fever, Chills, Malaise HEENT: Reports: No Symptoms Respiratory: Reports: Shortness of Breath. Denies: Pleuritic Chest Pain, Cough Cardiovascular: Reports: Chest Pain. Denies: Palpitations GI/Abdominal: Denies: Abdominal Pain, Nausea, Vomiting : Reports: No Symptoms Skin: Reports: Diaphoresis Neurological: Reports: No Symptoms. Denies: Headache ED EXAM, GENERAL - Physical Exam Exam: See Below Exam Limited By: No Limitations General Appearance: Alert, No Apparent Distress Eye Exam: Bilateral Eye: Normal Inspection Head: Atraumatic Respiratory/Chest: No Respiratory Distress, Lungs Clear Cardiovascular: Regular Rate, Rhythm GI/Abdominal: Soft, Tender (Some mild discomfort with palpation of the epigastric area) Extremities: Normal Inspection Neurological: Alert, Oriented, No Motor/Sensory Deficits Psychiatric: Normal Affect, Normal Mood Skin Exam: Warm, Dry EKG INTERPRETATION Rhythm: NSR ST-T: Other (Nonspecific T-wave changes.) Course - Vital Signs Last Recorded V/S: Last Vital Signs Temp 97.6 F 11/27/17 17:34 Pulse 63 11/27/17 19:22 Resp 16 11/27/17 18:49 BP 123/78 11/27/17 19:22 Pulse Ox 97 11/27/17 19:22 - Orders/Labs/Meds Orders: Active Orders 24 hr Category Date Time Status EKG Documentation Completion [RC] ASDIRECTED Care 11/27/17 17:42 Active Chest 2V [CR] Routine Exams 11/27/17 17:41 Taken EKG 12 Lead [EK] Routine Ther 11/27/17 17:41 Ordered Labs: Laboratory Tests 11/27/17 11/27/17 Range/Units 18:13 18:13 WBC 10.0 (4.5-11.0) K/uL RBC 5.54 (4.30-5.90) M/uL Hgb 16.6 H (12.0-15.0) g/dL Hct 46.0 (40.0-54.0) % MCV 83 (80-98) fL MCH 30 (27-31) pg MCHC 36 (32-36) % Plt Count 251 (150-400) K/uL Neut % (Auto) 55 (36-66) % Lymph % (Auto) 34 (24-44) % Glascock % (Auto) 8 H (2-6) % Eos % (Auto) 3 (2-4) % Baso % (Auto) 0 (0-1) % Sodium 140 (140-148) mmol/L Potassium 3.6 (3.6-5.2) mmol/L Chloride 103 (100-108) mmol/L Carbon Dioxide 24 (21-32) mmol/L Anion Gap 12.8 (5.0-14.0) mmol/L BUN 12 (7-18) mg/dL Creatinine 0.9 (0.8-1.3) mg/dL Est Cr Clr Drug Dosing 147.35 mL/min Estimated GFR (MDRD) > 60 (>60) Glucose 104 (74-106) mg/dL Calcium 9.0 (8.5-10.1) mg/dL Total Bilirubin 0.5 (0.2-1.0) mg/dL AST 23 (15-37) U/L ALT 56 (12-78) U/L Alkaline Phosphatase 85 (46-116) U/L Troponin I < 0.017 (0.000-0.056) ng/mL Total Protein 7.2 (6.4-8.2) g/dL Albumin 3.9 (3.4-5.0) g/dL Globulin 3.3 (2.3-3.5) g/dL Albumin/Globulin Ratio 1.2 (1.2-2.2) Meds: Medications Discontinued Medications Generic Name Dose Route Start Last Admin Trade Name Freq PRN Reason Stop Dose Admin Al Hydroxide/Mg Hydroxide 30 ml 11/27/17 17:41 11/27/17 18:11 Mag-Al Plus PO 11/27/17 17:42 30 ml ONETIME ONE Administration Ketorolac Tromethamine 30 mg 11/27/17 18:49 Toradol IM 11/27/17 18:50 ONETIME ONE Nitroglycerin 0.4 mg 11/27/17 18:12 11/27/17 18:16 Nitrostat SL 11/27/17 18:13 0.4 mg ONETIME ONE Administration - Re-Assessments/Exams Free Text/Narrative Re-Assessment/Exam: 11/27/17 17:51 Patient already has taken aspirin. Symptoms are not significant enough an EKG is basically normal, patient was given 30 mL of oral Maalox. CBC CMP and troponin were obtained as well as a two-view chest x-ray. Departure - Departure Disposition: Home, Self-Care 01 Clinical Impression: Atypical chest pain - Discharge Information Referrals: PCP,None [Primary Care Provider] - Forms: ED Department Discharge Additional Instructions: Please establish with primary care for further evaluation of your chest pain, call return to the emergency department worsening of symptoms <OfficerAristeo - Last Filed: 11/27/17 19:32> Departure - Departure Time of Disposition: 19:32 Condition: Good - Assessment/Plan Plan: Assessment Acuity = acute Site and laterality = atypical chest pain Etiology = unclear etiology Manifestations = none Location of injury = Home Lab values = CBC, troponin, CMP, chest x-ray, EKG all unremarkable Plan He received no relief from Maalox, nitroglycerin, Toradol, plan is to follow-up with primary care and establish for further workup of his chest pain, did offer him a stress test at this time he declined This note was dictated using [employer] voice recognition software please call with any questions on syntax or grammar.
[2017-11-27] MEDS ORDERED: Nitroglycerin 0.4 MG Tab.SL SL ONE (18:12)
[2017-11-27] MEDS ORDERED: Ketorolac 30 MG/ML SDV IM ONE (18:49)
[2017-11-27 19:23] VITALS: BP 123/78
--- NOTE | 2017-11-28 10:04 | CR ---
CHEST: 2 view CLINICAL HISTORY:Dyspnea COMPARISON:2017 FINDINGS: Heart size and pulmonary vascularity are normal. Lung figueroa are clear IMPRESSION: No acute cardiopulmonary process or significant change from prior study
== END 2017-11-27 20:11 | disposition home or self-care (01) ==
LOC: JP.ED 17:18
DX: R07.89 Other chest pain (principal); F17.210 Nicotine dependence, cigarettes, uncomplicated; K21.9 Gastro-esophageal reflux disease without esophagitis
CPT/HCPCS: 36415; 71046; 80053; 84484; 85025; 93005; 96372; 99285; A9270; J1885

== ENCOUNTER 2023-04-05 08:27 | Emergency (ER) | payer OTHER ==
[2023-04-05 08:40] VITALS: BP 141/95; PULSE 69
[2023-04-05 10:13] LABS: BASOPHILS ABSOLUTE AUTO 0.03 K/uL (0.00-0.10); BASOPHILS PERCENT AUTO 0.4 % (0.1-1.3); EOSINOPHILS ABSOLUTE AUTO 0.21 K/uL (0.00-0.40); EOSINOPHILS PERCENT AUTO 2.6 % (0.0-5.4); HEMATOCRIT 44.5 % (38.4-49.7); HEMOGLOBIN 15.8 g/dL (12.9-16.9); IMMATURE GRAN ABSOLUTE AUTO 0.03 K/uL (0.00-0.23); IMMATURE GRAN PERCENT AUTO 0.4 % (0.0-0.7); LYMPHOCYTES ABSOLUTE AUTO 1.76 K/uL (0.8-3.3); LYMPHOCYTES PERCENT AUTO 22.1 % (11.4-47.7); MEAN CORPUSCULAR HEMOGLOBIN 29.5 pg (31.6-35.5); MEAN CORPUSCULAR HGB CONC 35.5 g/dL (31.6-35.5); MEAN CORPUSCULAR VOLUME 83.2 fL (81.4-99.0); MONOCYTES ABSOLUTE AUTO 0.37 K/uL (0.20-0.90); MONOCYTES PERCENT AUTO 4.6 % (3.3-12.6); NEUTROPHILS ABSOLUTE AUTO 5.57 K/uL (1.0-7.6); NEUTROPHILS PERCENT AUTO 69.9 % (40.0-78.1); PLATELET COUNT,PLT 274 K/uL (130-375); RED BLOOD CELL COUNT 5.35 M/uL (4.14-5.76)
[2023-04-05 10:28] LABS: CALCIUM 8.7 mg/dL (8.5-10.1); CREATININE 0.9 mg/dL (0.8-1.3); EST CRCL DRUG DOSING (CG) 139.31 mL/min; POTASSIUM,K 4.3 mmol/L (3.6-5.2)
[2023-04-05 10:30] LABS: ANION GAP 9.3 mmol/L (5.0-14.0)
== END 2023-04-05 10:55 | disposition home or self-care (01) ==
LOC: JP.ED 08:27
DX: S29.012A Strain of muscle and tendon of back wall of thorax, initial encounter (principal); I10 Essential (primary) hypertension; Z79.899 Other long term (current) drug therapy; V49.40XA Driver injured in collision with unspecified motor vehicles in traffic accident, initial encounter; Y92.410 Unspecified street and highway as the place of occurrence of the external cause
CPT/HCPCS: 36415; 80048; 85025; 99284